=== PATIENT | female | born 1935 | race Caucasian/White ===

== ENCOUNTER 2016-12-14 16:57 | Inpatient (IN) | payer OTHER, MEDICARE ==
[~2016-12-14] VITALS: Ht 152.4 cm; Wt 42.4 kg
[2016-12-14] VITALS: BP 184/85
[2016-12-14] MEDS ORDERED: ONDANSETRON INJ 2 MG/ML 2 ML VIAL IV PRN (18:30)
[2016-12-14] MEDS ORDERED: ALUMINUM/MAGNESIUM/SIMETH (MAALOX MAX) 30 ML UDC PO PRN (18:30)
[2016-12-14] MEDS ORDERED: ALBUT/IPRATROP 3MG/0.5MG NEB 3 ML VIAL INH PRN (18:30)
[2016-12-14] MEDS ORDERED: POLYETHYLENE (MIRALAX) 17 GM PACK PO PRN (18:30)
[2016-12-14] MEDS ORDERED: MAGNESIUM HYDROXIDE SUSP 30 ML UDC PO PRN (18:30)
[2016-12-14] MEDS ORDERED: NITROGLYCERIN 0.4 MG SL PER TAB CHARGE SL PRN (18:30)
[2016-12-14] MEDS ORDERED: ACETAMINOPHEN 325 MG TAB PO PRN (18:30)
[2016-12-14] MEDS ORDERED: ASPI81CH2 PO (18:31)
[2016-12-14] MEDS ORDERED: DXY100 PO (18:31)
[2016-12-14] MEDS ORDERED: LSN5 PO (18:31)
[2016-12-14] MEDS ORDERED: LEVO50TA6 PO (18:31)
[2016-12-14] MEDS ORDERED: METO50TA17 PO (18:31)
[2016-12-14 18:44] VITALS: BP 120/70; PULSE 59; TEMP 36.4; O2SAT 97; Ht 152.4 cm; Wt 42.4 kg
--- NOTE | 2016-12-14 18:54 | History and Physical ---
History & Physical Date & Time of Service: Dec 14, 2016 at 18:34 Chief Complaint: Chf, Copd, Bilateral Pleural Effusion Primary Care Physician: Miguel Gamble M.D. History of Present Illness Source: patient, clinic records, hospital records Patient is a pleasant 81 y/o female, with PMHx of COPD, cor pulmonale, pulmonary fibrosis, chronic diastolic CHF, CAD s/p stent placement, HTN, hypothyroidism, and h/o bullous pemphigoid, who was a direct admission per Dr. Chris due to progressive dyspnea/hypoxia. Patient has been getting progressively short of breath over the past month. At the beginning of November, she was placed on chronic 3L O2 supplement. Due to progressive SOB, a CT scan was completed on 11/30, which reported bilateral pleural effusion. Due to this and progressive SOB, with no improvement with home O2, Dr. Chris would like patient to be admitted and consult Dr. Wells for possible thoracentesis. Additionally, per Dr. Chris reports, he is questioning whether patient is experiencing adrenal insufficiency. Patient was on Prednisone for h/o bullous pemphigoid- discontinued roughly 6 months ago per patient. +fatigue/weakness. + SOB at rest and with exertion. Patient denies any fever, chills, sweats, lightheadedness, dizziness, vision changes, CP, palpitations, edema, wheezing, cough, abdominal pain, nausea, vomiting, diarrhea, urinary symptoms, melena, numbness/tingling, muscle/joint pain, anxiety/depression, active bleeding, or new skin discoloration/changes. Past Medical/Surgical History Past Medical History COPD cor pulmonale pulmonary fibrosis chronic diastolic CHF CAD HTN hypothyroidism h/o bullous pemphigoid Surgical History: Appendectomy tubal ligation cataract surgery bronchoscopy stent placement Family History Father- Hodgkin Mother- emphysema Social History Smoking Status: Former Smoker Alcohol Use: none Marital Status: Housing status: lives with significant other Allergies Coded Allergies: Adhesives (Unverified Allergy, Unknown, ., 12/14/16) Albuterol (Unverified Allergy, Unknown, Listed as "Bad reaction", 12/14/16) Bupropion (Unverified Allergy, Unknown, Listed as "Bad reaction", 12/14/16) Ciprofloxacin (Unverified Allergy, Unknown, Listed as "Bad reaction", 12/14) Erythromycin (Unverified Allergy, Unknown, Listed as "Bad reaction", ) Ipratropium (Unverified Allergy, Unknown, Listed as "Bad reaction", ) Dicloxacillin (Unverified Adverse Reaction, Intermediate, slows metabolism , NEVER GIVE, 12/14/16) Fluticasone (Unverified Adverse Reaction, Unknown, Listed as "Bad reaction ", 12/14/16) Salmeterol (Unverified Adverse Reaction, Unknown, Listed as "Bad reaction ", 12/14/16) Tolterodine (Unverified Adverse Reaction, Unknown, dry mouth, 12/14/16) Home Medications Scheduled Aspirin (Aspirin), 1 TAB PO DAILY Doxycycline Hyclate (Doxycycline Hyclate), 100 MG PO DAILY Levothyroxine Sodium (Levothyroxine Sodium), 1 TAB PO DAILY Lisinopril (Lisinopril), 5 MG PO DAILY Metoprolol Tartrate (Metoprolol Tartrate), 50 MG PO BID Physical Exam General Appearance: no apparent distress, + thin (frail appearing ), + pertinent finding (4L NC O2- able to speak full sentences w/ no SOB) Head: normocephalic, atraumatic Eyes: normal inspection, PERRL ENT: hearing grossly normal Neck: supple Respiratory/Chest: lungs clear, no respiratory distress, no accessory muscle use, + decreased breath sounds (throughout all lung hines, >at bilateral lung bases ) Cardiovascular: regular rate, rhythm, no JVD Abdomen/GI: normal bowel sounds, non tender, soft Back: normal inspection Extremities/Musculoskelatal: no calf tenderness, no pedal edema Neurologic/Psych: alert, normal mood/affect, oriented x 3 Skin: normal color, no rash, + pertinent finding (extremities cool to touch ) Impression Assessment and Plan Patient is a pleasant 81 y/o female, with PMHx of COPD, cor pulmonale, pulmonary fibrosis, chronic diastolic CHF, CAD s/p stent placement, HTN, hypothyroidism, and h/o bullous pemphigoid, who was a direct admission per Dr. Chris due to progressive dyspnea/hypoxia. Dyspnea/hypoxia ?secondary to bilateral pleural effusion, h/o COPD, cor pulmonale, pulmonary fibrosis- follows w/ Dr. Chris: - Admit to tele for cardiac monitoring - O2 protocol, wean as tolerated- wears 3-4L O2 chronically - Obtain CBC and PRP - CXR pending - DuoNeb PRN SOB/wheezing - Continue Spiriva - Consult pulmonary, appreciate recommendations Progressive fatigue/weakness ?secondary to adrenal insufficiency: - No wheezing on exam, Cortosyn study reviewed- do not think stress dosing steroids is necessary at this time - PT/OT CAD s/p stent placement, chronic diastolic CHF, HTN: Continue ASA 81 mg daily, Lisinopril 5 mg daily, Metoprolol 50 mg BID Hypothyroidism: Continue Synthroid 50 mcg daily h/o bullous pemphigoid: Continue Doxycycline 100 mg daily DVT prophylaxis: TEDs/SCDs; will hold on chemical anticoagulation pending pulmonary consultation and ?thoracentesis Code Status: LEVEL V, DNR Dispo: From home, lives with - social media strategist consulted i personally examined pt and verified all rowland points w Lara Santana PAC has long and circuitous HPI centering on many tests that were done and abx for possible UTI (although only symptom was pressure) but on directed questioning her cardinal sx complex is fatigue/weakness and SMITH. had LE venous dopplers at [facility] a few weeks ago negative had 6 min walk test, CT chest, PFTs done not long ago doesn't recall echo being done, thinks last TSH was about 2 years ago. notes that she was on prednisone for bullous disease until not that long ago - not exact on when that was stopped and when her sx started but seems loosely in line. cosyntropin stim went 16-->20-->26 @ 0,30,60mins -- records in allscripts lungs diminished bibasilar but otherwise quiet but clear CXR w effusions but compared to read of CT from [facility] seems less than before , doubt is the main contributor fatigue/weakness/SMITH -main ddx appearing to be pulmonary vs cardiac vs relative adrenal vs thyroid; far less likely malignancy (clear CT chest, no mention of liver mets on CT chest , but also never had colo) ---get results of studies already done by dr chris, input from pulmonary in regards to possibly how much relates to chronic lung disease/management with inhalers, O2, etc ---echo ---TSH ---empiric trial of hydrocortisone Level of Care Telemetry Resuscitation Status FULL RESUSCITATION VTE Prophylaxis VTE Risk Assessment Done? Y/N: Yes Risk Level: Moderate Given or contraindicated: T.E.D. Stockings, SCD's
[2016-12-14 19:41] VITALS: BP 130/85; PULSE 66; TEMP 36.5; O2SAT 94
--- NOTE | 2016-12-14 20:30 | DIAGNOSTIC IMAGING REPORT ---
CHEST 2 VIEWS ROUTINE CLINICAL HISTORY: Dyspnea. COMPARISON STUDY: No previous studies for comparison. FINDINGS: A vascular stent projecting along the superolateral aspect of the aortic knob is noted. There is no pneumothorax. Small bilateral pleural effusions are present. There is no radiographic evidence of pulmonary edema. Bibasilar opacities favor atelectasis. There is suspected mild cardiomegaly. A few demonstrates an old thoracic spine compression fracture. IMPRESSION: 1. Small bilateral pleural effusions with associated bibasilar opacities which favor atelectasis. 2. No radiographic evidence of pulmonary edema. Electronically signed by: Andrea Singh M.D. 12/14/2016 8:29 PM Dictated Date/Time: 12/14/2016 8:26 PM
[2016-12-14 21:29] LABS: BASO % 0.9 %; BASO ABS # 0.08 K/uL (0-0.2); COMPLETE YES; EOS % 1.8 %; HEMATOCRIT 45.5 % (37-47); IG% 0.1 %; MEAN CELL VOLUME 87.8 fL (80-100); MEAN CORPUSCULAR HEMOGLOBIN 27.2 pg (25-34); MEAN PLATELET VOLUME 10.8 fL (7.4-10.4); MONO % 9.3 %; NEUT % 53.9 %; PLATELET COUNT 230 K/uL (130-400); RED BLOOD COUNT 5.18 M/uL (4.2-5.4); WHITE BLOOD COUNT 9.11 K/uL (4.8-10.8)
[2016-12-14] MEDS: METOPROLOL TARTRATE 50 MG TAB PO SCH (21:31)
[2016-12-14 21:48] LABS: BUN/CREATININE RATIO 15.1 (10-20); CREATININE 0.98 mg/dl (0.60-1.20); POTASSIUM 4.4 mmol/L (3.5-5.1)
[2016-12-14 22:03] LABS: URINE APPEARANCE CLOUDY (CLEAR); URINE BILIRUBIN NEG (NEG); URINE COLOR YELLOW; URINE NITRITE NEG (NEG); URINE SPECIFIC GRAVITY 1.013 (1.000-1.030); UROBILINOGEN NEG (NEG); ZZUR CULT IF INDIC CLEAN CATCH NO
[2016-12-14 22:04] LABS: MANUAL MICROSCOPIC REQUIRED? NO; REVIEW REQ? NO
[2016-12-14 23:30] VITALS: BP 174/86; PULSE 60; TEMP 36.7; O2SAT 93
[2016-12-15] VITALS (7 sets, daily range): BP systolic 127–168; BP diastolic 52–77; PULSE 56–64; TEMP 36.3–36.9; O2SAT 91–98
[2016-12-15] MEDS ORDERED: HydrALAZINE HCL 20 MG/ML VIAL IV. PRN (00:30)
[2016-12-15] MEDS: LEVOTHYROXINE 50 MCG TAB PO SCH (05:29)
[2016-12-15 05:36] LABS: HEMATOCRIT 40.1 % (37-47); MEAN CELL VOLUME 86.1 fL (80-100); MEAN CORPUSCULAR HEMOGLOBIN 28.8 pg (25-34); MEAN CORPUSCULAR HGB CONC 33.4 g/dl (32-36); MEAN PLATELET VOLUME 10.7 fL (7.4-10.4); PLATELET COUNT 198 K/uL (130-400); RED BLOOD COUNT 4.66 M/uL (4.2-5.4)
[2016-12-15 06:18] LABS: BUN/CREATININE RATIO 21.3 (10-20); CALCIUM 8.5 mg/dl (8.5-10.1); CREATININE 0.86 mg/dl (0.60-1.20); POTASSIUM 4.4 mmol/L (3.5-5.1)
--- NOTE | 2016-12-15 07:41 | Clinical Documentation Query ---
CLINICAL DOCUMENTATION QUERY 81 y/o female that was a direct admission per Dr. Gautam due to progressive dyspnea/hypoxia. In your clinical opinion is this patient being managed for: ( x ) Acute on chronic respiratory failure in setting of COPD, cor pulmonale, & pulmonary fibrosis treated with continued O2 therapy. ( ) Not Agree ( ) Other explanation of clinical findings (Please Explain) ( ) Unable to determine (Please Define) ( ) Need to Discuss The medical record reflects the following clinical findings, treatment, and risk factors. Clinical Indicators: home O2 therapy Treatment: O2 therapy Risk Factors: Age, COPD, cor pulmonale, pulmonary fibrosis, chronic diastolic CHF Please clarify and document your clinical opinion in the progress notes and discharge summary. Terms such as "probable", "suspected", "likely", "questionable", "possible", or "still to be ruled out" are acceptable. IF IN AGREEMENT, YOU MUST DOCUMENT ABOVE DIAGNOSTIC STATEMENT IN DAILY PROGRESS NOTES AND DISCHARGE SUMMARY. This document is not part of the patient's record. Thank You, Felix Cruz, RN [phone]
[2016-12-15] MEDS: ASPIRIN 81 MG ECTAB PO SCH (08:55)
[2016-12-15] MEDS: HYDROCORTISONE 10 MG TAB PO SCH (08:55)
[2016-12-15] MEDS: LISINOPRIL 5 MG TAB PO SCH (08:55)
[2016-12-15] MEDS: DOXYCYCLINE HYCLATE 100 MG CAP PO SCH (08:55)
[2016-12-15] MEDS: METOPROLOL TARTRATE 50 MG TAB PO SCH ×2 (08:56→21:00)
[2016-12-15] MEDS: TIOTROPIUM BROMIDE 5 PUFF/90 MCG INH INH SCH (08:56)
--- NOTE | 2016-12-15 11:17 | Hospitalist Progress Note ---
Hospitalist Progress Note Date of Service Dec 15, 2016. (Rhonda Hill ., PA-C) Subjective Pt evaluation today including: conversation w/ patient, physical exam, chart review, lab review, review of inpatient medication list Patient reports feeling weak and fatigued. She states that lately she has felt more short of breath, and her supplemental oxygen was just increased from 3L to 4L by Dr. García yesterday prior to arrival. She notes feeling more fatigued doing her usual daily activities and complains of dyspnea on exertion. She states that she felt nauseous last night and did vomit. She states that the vomit looked red and is unsure if that was blood. She denies any nausea or vomiting currently, however, and was able to eat breakfast without issue. The patient also complains of a cough that is mostly non-productive. The patient denies fevers, chills, sweats, chest pain, palpitations, claudication, wheezing , nausea, vomiting, abdominal pain, dysuria, hematuria, urinary retention, paralysis, motor weakness, numbness and tingling. Additional Comments: See HPI for pertinent positives and negatives. All other systems reviewed and negative. (Rhonda Hill ., PA-C) Objective Vital Signs Date Time Temp Pulse Resp B/P (MAP) Pulse Ox O2 Delivery O2 Flow Rate FiO2 12/15/16 08:18 36.9 56 18 136/61 (86) 98 12/15/16 04:30 Nasal Cannula 4.0 12/15/16 04:00 36.6 61 20 127/52 (77) 94 Nasal Cannula 4.0 12/15/16 01:32 136/62 (86) 12/15/16 00:00 Nasal Cannula 4.0 12/14/16 23:30 36.7 60 20 174/86 (115) 93 Nasal Cannula 4.0 12/14/16 20:00 Nasal Cannula 4.0 12/14/16 19:41 36.5 66 22 130/85 (100) 94 Nasal Cannula 4.0 12/14/16 18:44 36.4 59 18 120/70 97 Nasal Cannula 4.0 (Rhonda Hill ., PA-C) Physical Exam Notes: General appearance: +Thin. Appears chronically ill. Well-developed, well- nourished, no apparent distress Head: Normocephalic, atraumatic Eyes: Normal inspection, PERRL, EOMI ENT: Normal ENT inspection, hearing grossly normal, pharynx normal Neck: Supple, no JVD, trachea midline Respiratory/Chest: +Diminished breath sounds in bases. Lungs clear to auscultation, normal breath sounds, no respiratory distress Cardiovascular: Regular rate & rhythm, no gallop, no murmur Abdomen/GI: Normal bowel sounds, non-tender, soft Extremities/Musculoskeletal: Normal inspection, no calf tenderness, no pedal edema Neurological/Psych: Alert, normal mood/affect, oriented x 3 Skin: Normal color, warm/dry, no rash (Rhonda Hill, YAYA) Laboratory Results Last 24 Hours Test 12/14/16 21:17 12/14/16 21:43 12/15/16 05:24 12/15/16 10:17 White Blood Count 9.11 K/uL 10.70 K/uL Red Blood Count 5.18 M/uL 4.66 M/uL Hemoglobin 14.1 g/dL 13.4 g/dL Hematocrit 45.5 % 40.1 % Mean Corpuscular Volume 87.8 fL 86.1 fL Mean Corpuscular Hemoglobin 27.2 pg 28.8 pg Mean Corpuscular Hemoglobin Concent 31.0 g/dl 33.4 g/dl Platelet Count 230 K/uL 198 K/uL Mean Platelet Volume 10.8 fL 10.7 fL Neutrophils (%) (Auto) 53.9 % Lymphocytes (%) (Auto) 34.0 % Monocytes (%) (Auto) 9.3 % Eosinophils (%) (Auto) 1.8 % Basophils (%) (Auto) 0.9 % Neutrophils # (Auto) 4.91 K/uL Lymphocytes # (Auto) 3.10 K/uL Monocytes # (Auto) 0.85 K/uL Eosinophils # (Auto) 0.16 K/uL Basophils # (Auto) 0.08 K/uL RDW Standard Deviation 46.2 fL 45.2 fL RDW Coefficient of Variation 14.4 % 14.5 % Immature Granulocyte % (Auto) 0.1 % Immature Granulocyte # (Auto) 0.01 K/uL Sodium Level 141 mmol/L 139 mmol/L Potassium Level 4.4 mmol/L 4.4 mmol/L Chloride Level 103 mmol/L 103 mmol/L Carbon Dioxide Level 35 mmol/L 33 mmol/L Anion Gap 3.0 mmol/L 3.0 mmol/L Blood Urea Nitrogen 15 mg/dl 18 mg/dl Creatinine 0.98 mg/dl 0.86 mg/dl Est Creatinine Clear Calc Drug Dose 30.5 ml/min 34.9 ml/min Estimated GFR () 63.1 73.9 Estimated GFR (Non- 54.5 63.8 BUN/Creatinine Ratio 15.1 21.3 Random Glucose 102 mg/dl 79 mg/dl Calcium Level 9.0 mg/dl 8.5 mg/dl Thyroid Stimulating Hormone (TSH) 3.380 uIu/ml Urine Color YELLOW Urine Appearance CLOUDY Urine pH 8.0 Urine Specific [place] 1.013 Urine Protein NEG Urine Glucose (UA) NEG Urine Ketones NEG Urine Occult Blood NEG Urine Nitrite NEG Urine Bilirubin NEG Urine Urobilinogen NEG Urine Leukocyte Esterase NEG Urine WBC (Auto) 1-5 /hpf Urine RBC (Auto) 0-4 /hpf Urine Hyaline Casts (Auto) 0 /lpf Urine Epithelial Cells (Auto) 5-10 /lpf Urine Bacteria (Auto) NEG Transferrin % Saturation % Test 12/15/16 10:31 12/15/16 10:32 Erythrocyte Sedimentation Rate 20 mm/hr (Rhonda Hill PA-C) Diagnostic Results Reviewed the following studies and agree with interpretation as follows: Patient Name: MELBA ROMERO Unit Number: [id number] Dictated: 12/14/162025 Transcribed: 12/14/162025 SIMÓN Printed Date/Time: [~ rep prt dt]/[~ rep prt tm] [~ rep ct labl] - [~ rep ct ivnm] [facility] [place] [address] Dictated: 12/14/162025 Transcribed: 12/14/162025 Printed Date/Time: [~ rep prt dt]/[~ rep prt tm] [~ rep ct labl] - [~ rep ct ivnm] Patient: MELBA ROMERO Address1: [address] Rec: [id number] Address2: Acct ID: [id number] [facility] Zip: [place] [address] Date: 1935 Sex: F Room/Bed: [facility] Ref Phy: Miguel Gamble M.D. SC: C[facility] Att Phy: Pankaj Hughes D.O. Report #: [id number] Luz Phy: Miguel Gamble M.D. Test: CXR Admit Phy: Pankaj Hughes D.O. Securities Analyst: SERENE Interpreting Phy: Andrea Singh MD Diagnosis: CHF, COPD, BILATERAL PLEURAL EFFUSION Ordering Phy: Anabel Santana PA-C Service Date: 12/14/16 Admit Date: 12/14/16 MNE: [id number] CONF: DICTATED BY: Andrea Singh MD]] CC: Miguel Gamble M.D., Taylor ., Pankaj Rae D.O. Endcc: [~ rep ct add3]] CHEST 2 VIEWS ROUTINE CLINICAL HISTORY: Dyspnea. COMPARISON STUDY: No previous studies for comparison. FINDINGS: A vascular stent projecting along the superolateral aspect of the aortic knob is noted. There is no pneumothorax. Small bilateral pleural effusions are present. There is no radiographic evidence of pulmonary edema. Bibasilar opacities favor atelectasis. There is suspected mild cardiomegaly. A few demonstrates an old thoracic spine compression fracture. IMPRESSION: 1. Small bilateral pleural effusions with associated bibasilar opacities which favor atelectasis. 2. No radiographic evidence of pulmonary edema. Electronically signed by: Andrea Singh M.D. 12/14/2016 8:29 PM Dictated Date/Time: 12/14/2016 8:26 PM The status of this report is Signed. Draft = Not yet reviewed or approved by Radiologist. Signed = Reviewed and approved by Radiologist. <AttendingPhy>Pankaj Hughes D.O.</AttendingPhy> <FamilyPhy>Miguel Gamble M.D.</ FamilyPhy> <PrimaryPhy>Miguel Gamble M.D.</PrimaryPhy> <UnitNumber>[id number]</ UnitNumber> <VisitNumber>[id number]</VisitNumber> <PatientName>MELBA ROMERO Piero</PatientName> <DateOfBirth>1935</DateOfBirth> <Location>[facility]</ Location> <ServiceDate></ServiceDate> <MNE>ESINDI</MNE> <OrderingPhy>Anabel Santana PA-C</OrderingPhy> <OrderingPhyMNE>f rep ord dr austin</OrderingPhyMNE> < DictatingPhyMNE>f rep dict dr austin</DictatingPhyMNE> <CCListMNE>f rep ct mne</ CCListMNE> <AdmittingPhyMNE>f pt admit dr austin</AdmittingPhyMNE> <AttendingPhyMNE >f pt attend dr austin</AttendingPhyMNE> <ConsultingPhyMNE>f pt consult dr austin</ConsultingPhyMNE> <FamilyPhyMNE>f pt fam dr austin</FamilyPhyMNE> <OtherPhyMNE>f pt other dr austin</OtherPhyMNE> < PrimaryPhyMNE>f pt prim care dr austin</PrimaryPhyMNE> <ReferringPhyMNE>f pt referring dr austin</ReferringPhyMNE> (Rhonda Hill ., YAYA) Assessment and Plan 81 y/o female with a history of COPD, cor pulmonale, pulmonary fibrosis, chronic diastolic CHF, CAD s/p stent placement, HTN, hypothyroidism, and h/o bullous pemphigoid, who presents for a direct admission from Dr. Gautam's office with progressive dyspnea and hypoxia. Chronic respiratory failure in setting of b/l pleural effusions, COPD, cor pulmonale, & pulmonary fibrosis- follows w/ Dr. Gautam--stable. Denies SOB currently - Admit to tele for cardiac monitoring. No acute events overnight. Pt remained in sinus rhythm/sinus bradycardia with HR in 50s-60s - O2 protocol, wean as tolerated- wears 3-4L O2 chronically - CXR shows small bilateral pleural effusions with associated bibasilar opacities which favor atelectasis - DuoNeb PRN SOB/wheezing - Continue Spiriva - Consult pulmonary, appreciate recommendations Progressive fatigue/weakness ?secondary to adrenal insufficiency - Trial of Cortef, 20 mg PO qam and 10 mg PO qpm - Magnesium, ESR, CRP, B12 and folate WNL - Iron studies grossly unremarkable - Vitamin D low at 7.9 - Start ergocalciferol 50,000 IU PO 2x/week - TSH WNL - PT/OT CAD s/p stent placement, chronic diastolic CHF, HTN--stable - Continue ASA, lisinopril 5 mg PO qd, metoprolol tartrate 50 mg PO BID Hypothyroidism -Continue Synthroid 50 mcg PO qd H/o bullous pemphigoid -Continue Doxycycline 100 mg PO qd DVT prophylaxis -Heparin 5000 units SC q12h -TAMIE leigh and SCDs Code Status -Level V, DO NOT RESUSCITATE (Rhonda Hill ., PA-C) Attending Attestation: Pt seen/examined, chart reviewed, care plan d/w PA Rhonda Hill. I agree w/ the rowland components of her documentation. Pt's main complaint is chronic fatigue for several months. This has been associated with at least 10 pounds of weight loss. Admits to depression; in fact got slightly tearful during our discussion. Denies any pulmonary complaints today. VSS, o2 sats on NC O2 acceptable gen - thin, cacechtic neck - no JVD mouth - no lesions heart - RRR lungs - decreased BS both bases, o/w no wheeze or rales abd - soft, no masses ext - no edema A/P: 1. chronic respiratory failure 2nd to severe COPD & pulmonary HTN 2. failure to thrive with fatigue & weight loss, etiology uncertain 3. concern of adrenal insufficiency - ruled out with negative cosyntropin stim test at [facility] 4. b/l pleural effusions - too small to safely tap and even if thoracentesis could be done I doubt this would make her feel any better; b/l effusions would suggest transudative etiology 5. vitamin D def - severe 6. probable underlying depression lengthy discussion held with pt's by phone this evening discussed cxr findings, labs, plan of care he was quite upset about his 's overall health over the last few months told him I would contact his PCP tomorrow and that I anticipated d/c tomorrow as well (PT cleared for home) Lei Clayton MD (Lei Clayton MD)
[2016-12-15 11:27] LABS: C-REACTIVE PROTEIN < 0.29 mg/dl (0-0.29); FERRITIN 51.5 ng/ml (8.0-388.0); MAGNESIUM 2.1 mg/dl (1.8-2.4); TOTAL IRON BINDING CAPACITY 241 mcg/dl (250-450)
--- NOTE | 2016-12-15 12:51 | Pulmonary Consultation ---
History General Date of Service: Dec 15, 2016. Stated Complaint: Chf, Copd, Bilateral Pleural Effusion HPI The patient is a 81 year old female who presents to [facility] with complaints of Chf, Copd, Bilateral Pleural Effusion. The patient's primary care provider is Miguel Gambel M.D.. 81-year-old female being admitted to the [facility] through the pulmonary clinic after being evaluated by Dr. Gautam and noted increased hypoxemia now requiring 2 L nasal cannula at rest. Patient does have a long history of COPD last pulmonary function test performed 09/29/2011 notable for moderate least severe obstructive ventilatory disease with a bout of intraoperative DLCO at 44%. The patient has noted progressive dyspnea on exertion and fatigue over the last year. She also notes an unintentional weight loss. At times well. Due to this the patient was recently seen by Dr. Jose Juan Gautam for workup and with 6 minute walk study on 11/25/[address] of the thorax on 11/30/2016 showing bilateral pleural effusions and diffuse emphysematous changes and signs a loculated pleural effusion bilaterally. The patient currently denies: Fever, chills, pleurisy, classic cardiac chest pain, night sweats, productive cough or hemoptysis. The patient does have a chronic history of steroid use secondary to bullous pemphigoid and was she was recently weaned. Serum Studies Outpatient cosyntropin stim test: Initial value 16.5 with response after cosyntropin stimulation 226.9 within a 60 minute window AB.37/48/53 ( EKG: Normal sinus rhythm, rate 60, no signs of acute ischemia, signs of LVH WBC: 11K CO2: 35 BUN: 18 Cr: 0.86 Vit D: 7.9(L) CRP: <0.29 CXR: Bilateral costophrenic blunting, mild bibasilar opacifications Medications: Hydrocortisone 20 QD ASA 81mg QD Lisinopril 5 mg daily Spiriva one puff daily Lopressor 50 mg twice a day 6 minute walk study 11/25/2016 O2 sat at baseline 86% on room air, heart rate 68 On 2 L increased at baseline to 93% rate 68 Ambulation pulse ox 90% on 2 L heart rate 70 Primary function test 09/29/2011 Spirometry: Moderately severe obstructive ventilatory disease Bronchodilator: No significant response Lung volumes: Signs of hyperinflation with an elevated RV/TLC at 51 Diffusion: 44% corrected to 62% off alveolar volume Interpretation: Emphysema Radiology CTA thorax 11/30/2016: Bilateral pleural effusions right greater than left Signs of chronic pleural scarring on the left with loculated effusion possible right Bronchiectatic changes mild atelectasis in the inferior lingular subsegment Bronchiectatic changes in the right middle lobe Left lower lobe bronchiectasis with signs of rounded atelectasis Bronchus intermedius signs of mucous plugs on the medial wall Historian: patient, caregiver, EMS Review of Systems Constitutional: reports: malaise Eyes: reports: no symptoms ENT: reports: no symptoms Cardiovascular: reports: as stated in HPI Gastrointestinal: reports: no symptoms Musculoskeletal: reports: no symptoms Integumentary: reports: no symptoms Neurologic: reports: no symptoms Psychiatric: reports: no symptoms Endocrine: no symptoms Hematologic / Lymphatic: no symptoms Allergic / Immunologic: no symptoms Past Medical History Past Medical History: 1. Bullous pemphigoid 2. Chronic nonspecific lung disease 3. Chronic obstructive pulmonary disease 4. Cor pulmonale 5. Coronary artery disease 6. Occlusion of carotid artery ( 7. Osteoporosis 8. Pulmonary fibrosis 9. Urinary tract infection 10. Compression fractures of thoracic vertebra Past Surgical History: #1 appendectomy #2 bronchoscopy next #3 cataract surgery next #4 subclavian/innominate vessel stenting #5 tubal ligation Family History #1 emphysema next line #2 Hodgkin's disease Social History Alcohol, denies history of use or abuse Tobacco: History former smoker quit 13 years prior smoker multiple decades Hx Tobacco Use In Past Year?: No Smoking Status: Former Smoker Marital status: Housing status: lives with significant other Allergies Coded Allergies: Adhesives (Unverified Allergy, Unknown, ., 12/14/16) Albuterol (Unverified Allergy, Unknown, Listed as "Bad reaction", 12/14/16) Bupropion (Unverified Allergy, Unknown, Listed as "Bad reaction", 12/14/16) Ciprofloxacin (Unverified Allergy, Unknown, Listed as "Bad reaction", 12/14) Erythromycin (Unverified Allergy, Unknown, Listed as "Bad reaction", ) Ipratropium (Unverified Allergy, Unknown, Listed as "Bad reaction", ) Dicloxacillin (Unverified Adverse Reaction, Intermediate, slows metabolism , NEVER GIVE, 12/14/16) Fluticasone (Unverified Adverse Reaction, Unknown, Listed as "Bad reaction ", 12/14/16) Salmeterol (Unverified Adverse Reaction, Unknown, Listed as "Bad reaction ", 12/14/16) Tolterodine (Unverified Adverse Reaction, Unknown, dry mouth, 12/14/16) Current Medications Reported Home Medications Medications Dose Route/Sig Max Daily Dose Days Date Category Metoprolol Tartrate 50 Mg Tab 50 Mg PO BID 30 12/14/16 Rx Lisinopril 5 Mg Tab 5 Mg PO DAILY 12/14/16 Rx Levothyroxine Sodium 50 Mcg Tab 1 Tab PO DAILY 30 12/14/16 Rx Doxycycline Hyclate 100 Mg Cap 100 Mg PO DAILY 30 12/14/16 Rx Aspirin 81 Mg Chw 1 Tab PO DAILY 30 12/14/16 Rx Physical Physical Exam Vital Signs: Date Time Temp Pulse Resp B/P (MAP) Pulse Ox O2 Delivery O2 Flow Rate FiO2 12/15/16 12:00 Nasal Cannula 4.0 12/15/16 08:18 36.9 56 18 136/61 (86) 98 12/15/16 08:00 Nasal Cannula 4.0 12/15/16 04:30 Nasal Cannula 4.0 12/15/16 04:00 36.6 61 20 127/52 (77) 94 Nasal Cannula 4.0 12/15/16 01:32 136/62 (86) 12/15/16 00:00 Nasal Cannula 4.0 12/14/16 23:30 36.7 60 20 174/86 (115) 93 Nasal Cannula 4.0 12/14/16 20:00 Nasal Cannula 4.0 12/14/16 19:41 36.5 66 22 130/85 (100) 94 Nasal Cannula 4.0 12/14/16 18:44 36.4 59 18 120/70 97 Nasal Cannula 4.0 General Appearance: WELL-APPEARING, NO APPARENT DISTRESS Head: NORMOCEPHALIC, ATRAUMATIC Eyes: PERRLA, NO DISCHARGE, EOMI, SCLERAE NORMAL ENT: NORMAL EAR EXAM, NORMAL NASAL EXAM, NORMAL MOUTH EXAM, NORMAL THROAT EXAM Neck: NORMAL RANGE OF MOTION, NO TENDERNESS, TRACHEA MIDLINE, NO STRIDOR Respiratory: other (decreased breath sounds in the bases mild expiratory wheezing globally/thoracic ultrasound shows bilateral pleural effusions with signs of trapped lung as well as adhered lung to the parietal pleura) Cardiovasular: REGULAR RATE/RHYTHM, NO M/G/R, NO MURMUR Abdomen: NON TENDER, NORMAL BOWEL SOUNDS, NO REBOUND, NO MASSES, NO GUARDING, NO ORGANOMEGALY Genitourinary - Female: EXTERNAL GENITALIA NORMAL Back: NORMAL INSPECTION, NO MIDLINE TENDERNESS, NO CVA TENDERNESS, NO PARAVERTEBRAL TTP Upper Extremities: NO EDEMA, NO DEFORMITY, NORMAL ROM Lower Extremities: NO EDEMA, NO DEFORMITY, NORMAL ROM Pulses: carotid (R) (2+), carotid (L) (2+), posterior tibial (R), posterior tibial (L) (2+) Neuro: ALERT, ORIENTED x 3, NORMAL MOTOR EXAM, NORMAL SENSATION, NORMAL CEREBELLAR EXAM Reflexes: biceps (R) (2+), bicpes (L) (2+), achilles (R) (2+), achilles (L) (2+ ) Babinski Testing: right (downgoing), left (downgoing) Psychiatric: NORMAL AFFECT Diagnostics Labs Results Past 24 Hours Test 12/14/16 21:17 12/14/16 21:43 12/15/16 05:24 12/15/16 10:31 Range/Units White Blood Count 9.11 10.70 4.8-10.8 K/uL Red Blood Count 5.18 4.66 4.2-5.4 M/uL Hemoglobin 14.1 13.4 12.0-16.0 g/dL Hematocrit 45.5 40.1 37-47 % Mean Corpuscular Volume 87.8 86.1 80-100 fL Mean Corpuscular Hemoglobin 27.2 28.8 25-34 pg Mean Corpuscular Hemoglobin Concent 31.0 33.4 32-36 g/dl Platelet Count 230 198 130-400 K/uL Mean Platelet Volume 10.8 10.7 7.4-10.4 fL Neutrophils (%) (Auto) 53.9 % Lymphocytes (%) (Auto) 34.0 % Monocytes (%) (Auto) 9.3 % Eosinophils (%) (Auto) 1.8 % Basophils (%) (Auto) 0.9 % Neutrophils # (Auto) 4.91 1.4-6.5 K/uL Lymphocytes # (Auto) 3.10 1.2-3.4 K/uL Monocytes # (Auto) 0.85 0.11-0.59 K/uL Eosinophils # (Auto) 0.16 0-0.5 K/uL Basophils # (Auto) 0.08 0-0.2 K/uL RDW Standard Deviation 46.2 45.2 36.4-46.3 fL RDW Coefficient of Variation 14.4 14.5 11.5-14.5 % Immature Granulocyte % (Auto) 0.1 % Immature Granulocyte # (Auto) 0.01 0.00-0.02 K/uL Sodium Level 141 139 136-145 mmol/L Potassium Level 4.4 4.4 3.5-5.1 mmol/L Chloride Level 103 103 98-107 mmol/L Carbon Dioxide Level 35 33 21-32 mmol/L Anion Gap 3.0 3.0 3-11 mmol/L Blood Urea Nitrogen 15 18 7-18 mg/dl Creatinine 0.98 0.86 0.60-1.20 mg/dl Est Creatinine Clear Calc Drug Dose 30.5 34.9 ml/min Estimated GFR () 63.1 73.9 Estimated GFR (Non- 54.5 63.8 BUN/Creatinine Ratio 15.1 21.3 10-20 Random Glucose 102 79 70-99 mg/dl Calcium Level 9.0 8.5 8.5-10.1 mg/dl Thyroid Stimulating Hormone (TSH) 3.380 0.300-4.500 uIu/ml Urine Color YELLOW Urine Appearance CLOUDY CLEAR Urine pH 8.0 4.5-7.5 Urine Specific [place] 1.013 1.000-1.030 Urine Protein NEG NEG Urine Glucose (UA) NEG NEG Urine Ketones NEG NEG Urine Occult Blood NEG NEG Urine Nitrite NEG NEG Urine Bilirubin NEG NEG Urine Urobilinogen NEG NEG Urine Leukocyte Esterase NEG NEG Urine WBC (Auto) 1-5 0-5 /hpf Urine RBC (Auto) 0-4 0-4 /hpf Urine Hyaline Casts (Auto) 0 0-5 /lpf Urine Epithelial Cells (Auto) 5-10 0-5 /lpf Urine Bacteria (Auto) NEG NEG Magnesium Level 2.1 1.8-2.4 mg/dl Iron Level 64 35-150 mcg/dl Total Iron Binding Capacity 241 250-450 mcg/dl Transferrin 177 200-360 mg/dl Transferrin % Saturation 26 15-50 % Ferritin 51.5 8.0-388.0 ng/ml Total Creatine Kinase 25 26-192 U/L C-Reactive Protein < 0.29 0-0.29 mg/dl Vitamin B12 Level 485 211-911 pg/mL 25-Hydroxy Vitamin D Total 7.9 30-100 ng/ml Folate > 24.00 >5.38 ng/mL Test 12/15/16 10:32 Range/Units Erythrocyte Sedimentation Rate 20 0-21 mm/hr Diagnostic Radiology Normal sinus rhythm, rate 60, no signs of acute ischemia, signs of LVH EKG CTA thorax 11/30/2016: Bilateral pleural effusions right greater than left Signs of chronic pleural scarring on the left with loculated effusion possible right Bronchiectatic changes mild atelectasis in the inferior lingular subsegment Bronchiectatic changes in the right middle lobe Left lower lobe bronchiectasis with signs of rounded atelectasis Bronchus intermedius signs of mucous plugs on the medial wall CXR: Bilateral costophrenic blunting, mild bibasilar opacifications Impression Assessment and Plan 81-year-old female admitted with increasing dyspnea and associated hypoxemia and failure to thrive #1 Hypoxia: Patient's hypoxemia most likely from progressive emphysema but also volume overload possible diastolic versus systolic heart failure and malnutrition. At this time suggest continue hydrocortisone at current doses of present outpatient. Also suggest aggressive diuresis while monitoring renal function and will obtain total protein, albumin and prealbumin levels for overall nutritional status. #2 adrenal insufficiency: Patient did have a decreased response to the cosyntropin stim test and is currently being monitored/treated with hydrocortisone. #3 pleural effusion's: Patient did have small bilateral pleural effusions but also has notable lung adhered to the parietal pleura so no good entry point for thoracentesis is available. Lead risk to benefit ratio for this patient takes thoracentesis out of the equation.
[2016-12-15] MEDS ORDERED: ERGOCALCIFEROL 50,000 INTER.UNIT CAP PO SCH (13:00)
[2016-12-15] MEDS ORDERED: HYDROCORTISONE 10 MG TAB PO SCH (14:00)
[2016-12-15 15:39] LABS: PROTHROMBIN TIME (PATIENT) 10.6 SECONDS (9.0-12.0)
--- NOTE | 2016-12-15 15:57 | ECHOCARDIOGRAM REPORT ---
*NOTICE TO RECEIVING CONSTITUTION PARTY AGENCY This information is strictly Confidential and protected under [place] law. [place] law prohibits you from making any further disclosure of this information unless further disclosure is expressly permitted by the written consent of the person to whom it pertains or is authorized by law. A general authorization for the release of medical or other information is not sufficient for this purpose. Hospital accepts no responsibility if the information is made available to any other person, INCLUDING THE PATIENT. Interpretation Summary * Name: MELBA ROMERO Study Date: 12/15/2016 06:53 AM BP: 127/52 mmHg * Patient Location: .2E\S\E204\S\1 HR: 61 * : 1935 (M/d/yyyy) Gender: Female Height: 60 in * Age: 81 yrs Ethnicity: CA Weight: 93 lb * Ordering Physician: Pankaj Hughes * Referring Physician: Jose Juan Gautam * Performed By: Amber Dumont * * Reason For Study: FATIGUE, WEAKNESS * BSA: 1.3 m2 * -- Conclusions -- * Left ventricular systolic function is normal. * No regional wall motion abnormalities noted. * Ejection Fraction = 65-70%. * There is moderate concentric left ventricular hypertrophy. * Diastolic dysfunction, Grade II (pseudonormalization pattern). * There is mild to moderate tricuspid regurgitation. * Right ventricular systolic pressure is elevated at 40-50mmHg. Procedure Details * A complete two-dimensional transthoracic echocardiogram was performed (2D, M-mode, Doppler and color flow Doppler). Left Ventricle * The left ventricle is normal in size. * There is moderate concentric left ventricular hypertrophy. * Ejection Fraction = 65-70%. * Left ventricular systolic function is normal. * No regional wall motion abnormalities noted. Right Ventricle * The right ventricle is normal size. * There is mild right ventricular hypertrophy. * The right ventricular systolic function is reduced as assessed by tricuspid annular plane systolic excursion (TAPSE) (TAPSE <1.6 cm). Atria * The left atrial size is normal. * Right atrial size is normal. * No ASD detected; PFO is not assessed. Mitral Valve * The mitral valve is grossly normal. * Significant mitral regurgitation is absent. Tricuspid Valve * The tricuspid valve is not well visualized, but is grossly normal. * There is no tricuspid stenosis. * There is mild to moderate tricuspid regurgitation. * Right ventricular systolic pressure is elevated at 40-50mmHg. Aortic Valve * The aortic valve is normal in structure and function. * No hemodynamically significant valvular aortic stenosis. * Trace aortic regurgitation. Pulmonic Valve * The pulmonary valve is not well seen, but the Doppler examination is normal without significant regurgitation or stenosis. Great Vessels * The aortic root is normal size. * The pulmonary is not well visualized. Pericardium/Pleural * There is no pericardial effusion. Great Vessels * Normal inferior vena cava size and collapsability with sniff indicates a normal right atrial pressure of 3 mmHg Left Ventricular Diastolic Function * Diastolic dysfunction, Grade II (pseudonormalization pattern). MMode 2D Measurements and Calculations IVSd 1.4 cm IVSs 1.9 cm LVIDd 3.5 cm LVIDs 2.2 cm LVPWd 1.4 cm LVPWs 1.4 cm IVS/LVPW 0.97 FS 35.0 % EDV(Teich) 49.3 ml ESV(Teich) 17.1 ml EF(Teich) 65.4 % EDV(cubed) 41.2 ml ESV(cubed) 11.3 ml EF(cubed) 72.5 % % IVS thick 36.1 % % LVPW thick -3.51 % LV mass(C)d 172.8 grams LV mass(C)dI 128.2 grams/m\S\2 LV mass(C)s 131.8 grams LV mass(C)sI 97.8 grams/m\S\2 SV(Teich) 32.2 ml SI(Teich) 23.9 ml/m\S\2 SV(cubed) 29.9 ml SI(cubed) 22.2 ml/m\S\2 ACS 1.6 cm LA dimension 3.4 cm asc Aorta Diam 2.7 cm LVOT diam 1.7 cm LVOT area 2.2 cm\S\2 LVAd ap4 16.0 cm\S\2 LVLd ap4 5.7 cm EDV(MOD-sp4) 37.9 ml EDV(sp4-el) 38.2 ml LVAs ap4 7.8 cm\S\2 LVLs ap4 4.5 cm ESV(MOD-sp4) 12.0 ml ESV(sp4-el) 11.5 ml EF(MOD-sp4) 68.4 % EF(sp4-el) 70.0 % LVAd ap2 21.9 cm\S\2 LVLd ap2 6.1 cm EDV(MOD-sp2) 61.4 ml EDV(sp2-el) 66.5 ml LVAs ap2 10.6 cm\S\2 LVLs ap2 4.7 cm ESV(MOD-sp2) 20.0 ml ESV(sp2-el) 20.4 ml EF(MOD-sp2) 67.4 % EF(sp2-el) 69.3 % LVLd %diff 7.3 % EDV(MOD-bp) 50.0 ml LVLs %diff 4.8 % ESV(MOD-bp) 15.4 ml EF(MOD-bp) 69.2 % SV(MOD-sp4) 25.9 ml SI(MOD-sp4) 19.2 ml/m\S\2 SV(MOD-sp2) 41.4 ml SI(MOD-sp2) 30.7 ml/m\S\2 SV(MOD-bp) 34.6 ml SI(MOD-bp) 25.7 ml/m\S\2 SV(sp4-el) 26.7 ml SI(sp4-el) 19.8 ml/m\S\2 SV(sp2-el) 46.1 ml SI(sp2-el) 34.2 ml/m\S\2 Doppler Measurements and Calculations MV E max regna 83.3 cm/sec MV A max regan 65.1 cm/sec MV E/A 1.3 MV dec time 0.23 sec Ao V2 max 154.2 cm/sec Ao max PG 9.5 mmHg Ao max PG (full) 4.9 mmHg ALLYN(V,A) 1.6 cm\S\2 ALLYN(V,D) 1.6 cm\S\2 AI max regan 404.5 cm/sec AI max PG 65.5 mmHg AI dec slope 198.7 cm/sec\S\2 AI P1/2t 596.1 msec LV V1 max PG 4.7 mmHg LV V1 max 107.8 cm/sec PA V2 max 56.1 cm/sec PA max PG 1.3 mmHg PI end-d regan 122.4 cm/sec TR max regan 364.1 cm/sec
[2016-12-15] MEDS: HEPARIN SOD 5000 UNIT/0.5 ML CARP SQ SCH (21:00)
[2016-12-16] VITALS: BP 120/51; PULSE 81; TEMP 36.7; O2SAT 94
[2016-12-16 03:59] VITALS: BP 126/53; PULSE 60; TEMP 36.6; O2SAT 90
[2016-12-16] MEDS: LEVOTHYROXINE 50 MCG TAB PO SCH (05:34)
[2016-12-16 07:09] VITALS: BP_SYST 160; BP_SYST 164; BP_DIAS 65; PULSE 55; TEMP 36.5; O2SAT 99
[2016-12-16] MEDS: ASPIRIN 81 MG ECTAB PO SCH (08:13)
[2016-12-16] MEDS: TIOTROPIUM BROMIDE 5 PUFF/90 MCG INH INH SCH (08:13)
[2016-12-16] MEDS: METOPROLOL TARTRATE 50 MG TAB PO SCH (08:14)
[2016-12-16] MEDS: LISINOPRIL 5 MG TAB PO SCH (08:14)
[2016-12-16] MEDS: HYDROCORTISONE 10 MG TAB PO SCH (08:14)
[2016-12-16] MEDS: DOXYCYCLINE HYCLATE 100 MG CAP PO SCH (08:15)
[2016-12-16] MEDS: HEPARIN SOD 5000 UNIT/0.5 ML CARP SQ SCH (08:16)
[2016-12-16 08:35] LABS: HEMATOCRIT 41.3 % (37-47); MEAN CELL VOLUME 87.7 fL (80-100); MEAN CORPUSCULAR HEMOGLOBIN 27.6 pg (25-34); MEAN CORPUSCULAR HGB CONC 31.5 g/dl (32-36); MEAN PLATELET VOLUME 11.7 fL (7.4-10.4); PLATELET COUNT 209 K/uL (130-400); RED BLOOD COUNT 4.71 M/uL (4.2-5.4); WHITE BLOOD COUNT 12.24 K/uL (4.8-10.8)
[2016-12-16 08:59] LABS: BUN/CREATININE RATIO 30.5 (10-20); CALCIUM 8.8 mg/dl (8.5-10.1); CREATININE 0.79 mg/dl (0.60-1.20); POTASSIUM 3.5 mmol/L (3.5-5.1)
[2016-12-16 09:03] LABS: PREALBUMIN 15.7 mg/dl (20-40)
[2016-12-16] MEDS ORDERED: SPRIN INH (10:45)
[2016-12-16] MEDS ORDERED: ERGO1CAP41 PO (10:46)
--- NOTE | 2016-12-16 11:01 | Discharge Instructions ---
Discharge Instructions Date of Service Dec 16, 2016. Admission Reason for Admission: Chf, Copd, Bilateral Pleural Effusion Discharge Discharge Diagnosis / Problem: Chronic respiratory failure, COPD, weakness, fatigue Discharge Goals Goal(s): Decrease discomfort, Diagnostic testing, Therapeutic intervention Activity Recommendations Activity Limitations: resume your previous activity (as tolerated) . Instructions / Follow-Up Instructions / Follow-Up You were admitted to the hospital with worsening shortness of breath and hypoxia. Dr. Gautam had just increased your oxygen requirement prior to arrival to the hospital, and as you have been feeling better on this requirement , we will continue you on 4L oxygen continuously. You were found to have small bilateral pleural effusions which are likely related to your chronic congestive heart failure. Pulmonology was consulted, and there was no need to do a tap to drain these effusions at this time. Your progressive shortness of breath/ hypoxia are thought to be related to your progressive emphysema. For your weakness and fatigue, several tests were done to help determine the source. These tests came back largely normal except for your vitamin D level, which was low. You have been started on vitamin D replacement therapy, which you will continue as an outpatient. You are now medically stable for discharge and will continue to follow up as an outpatient. Medications: *Please take ergocalciferol (vitamin D) 50,000 interunits by mouth twice a week (Wednesdays and Saturdays) for 8 weeks. After this is completed, your primary care provider can continue maintenance vitamin D dosing. *Please continue on hydrocortisone (steroid) twice daily. Take every morning upon awakening and every afternoon. Take with food. New prescription provided. *Please start lasix (furosemide) 20mg daily. Start this today. Take for FIVE DAYS ONLY then stop. This is a water pill/diuretic. It may help remove the fluid in your lungs. *Please start potassium supplement daily. Start this today. Take for FIVE DAYS ONLY then stop. *It is recommended that you start taking a daily multivitamin. These can be bought over the counter. *Continue your other home medications as prescribed. Follow up: *You will be scheduled to follow up with your primary care provider. There were some changes on your EKG in the hospital that should be followed up on as an outpatient. It is recommended that you have another EKG with your primary care provider when you have your appointment. As discussed, please speak to your primary care provider if you wish to do further cancer work up in the future. Please seek medical attention if you experience fevers, chills, sweats, lightheadedness/dizziness, loss of consciousness, chest pain, acute worsening of shortness of breath, nausea, vomiting, numbness or tingling. Current Hospital Diet Patient's current hospital diet: AHA Diet (Heart Healthy) Discharge Diet Recommended Diet: AHA Diet (Heart Healthy) Procedures Procedures Performed: Echocardiogram Pending Studies Studies pending at discharge: no Medical Emergencies . Who to Call and When: Medical Emergencies: If at any time you feel your situation is an emergency, please call 911 immediately. . Non-Emergent Contact Non-Emergency issues call your: Primary Care Provider Call Non-Emergent contact if: you have a fever, you have any medication questions . Past History Medical & Surgical History: (1) Chronic respiratory failure (2) COPD (chronic obstructive pulmonary disease) (3) Weakness (4) Fatigue . "Provider Documentation" section prepared by Rhonda Hill. . VTE Core Measure Inpt VTE Proph given/why not?: Unfractionated heparin SQ, T.E.D. Stockings, SCD 's
--- NOTE | 2016-12-16 11:17 | Discharge Summary ---
Discharge Summary Date of Service Dec 16, 2016. (Rhonda Hill, YAYA) Discharge Summary Admission Date: Dec 14, 2016 at 17:12 Discharge Date: Dec 16, 2016 Discharge Disposition: Home with services Principal Diagnosis: Chronic respiratory failure, COPD, weakness and fatigue Procedures: Echocardiogram: Interpretation Summary * Name: MELBA ROMERO Study Date: 12/15/2016 06:53 AM BP: 127/52 mmHg * Patient Location: [facility] [place]\S\E204\S\1 HR: 61 * : 1935 (M/d/yyyy) Gender: Female Height: 60 in * Age: 81 yrs Ethnicity: CA Weight: 93 lb * Ordering Physician: Pankaj Hughes * Referring Physician: Jose Juan Gautam * Performed By: Amber Dumont * * Reason For Study: FATIGUE, WEAKNESS * BSA: 1.3 m2 * -- Conclusions -- * Left ventricular systolic function is normal. * No regional wall motion abnormalities noted. * Ejection Fraction = 65-70%. * There is moderate concentric left ventricular hypertrophy. * Diastolic dysfunction, Grade II (pseudonormalization pattern). * There is mild to moderate tricuspid regurgitation. * Right ventricular systolic pressure is elevated at 40-50mmHg. Procedure Details * A complete two-dimensional transthoracic echocardiogram was performed (2D, M- mode, Doppler and color flow Doppler). Left Ventricle * The left ventricle is normal in size. * There is moderate concentric left ventricular hypertrophy. * Ejection Fraction = 65-70%. * Left ventricular systolic function is normal. * No regional wall motion abnormalities noted. Right Ventricle * The right ventricle is normal size. * There is mild right ventricular hypertrophy. * The right ventricular systolic function is reduced as assessed by tricuspid annular plane systolic excursion (TAPSE) (TAPSE <1.6 cm). Atria * The left atrial size is normal. * Right atrial size is normal. * No ASD detected; PFO is not assessed. Mitral Valve * The mitral valve is grossly normal. * Significant mitral regurgitation is absent. Tricuspid Valve * The tricuspid valve is not well visualized, but is grossly normal. * There is no tricuspid stenosis. * There is mild to moderate tricuspid regurgitation. * Right ventricular systolic pressure is elevated at 40-50mmHg. Aortic Valve * The aortic valve is normal in structure and function. * No hemodynamically significant valvular aortic stenosis. * Trace aortic regurgitation. Pulmonic Valve * The pulmonary valve is not well seen, but the Doppler examination is normal without significant regurgitation or stenosis. Great Vessels * The aortic root is normal size. * The pulmonary is not well visualized. Pericardium/Pleural * There is no pericardial effusion. Great Vessels * Normal inferior vena cava size and collapsability with sniff indicates a normal right atrial pressure of 3 mmHg Left Ventricular Diastolic Function * Diastolic dysfunction, Grade II (pseudonormalization pattern). Consultations: Pulmonology--Dr. Wells (Rhonda Hill ., PA-C) Problems/Secondary Diagnoses: 1. b/l pleural effusions - too small to safely perform thoracentesis 2. vitamin D deficiency - severe 3. moderate protein calorie malnutrition with failure to thrive & recent weight loss 4. question of depression 5. pulmonary HTN 6. h/o CAD with stent placement 7. CKD stage 3 8. chronic cor pulmonale 9. pulmonary fibrosis 10. chronic diastolic CHF 11. HTN 12. hypothyroidism 13. h/o bullous pemphigoid (Lei Clayton MD) Medication Reconciliation New Medications: Furosemide (Lasix) 20 Mg Tab 20 MG PO QAM, #30 TAB 0 Refills Potassium Chloride (Micro-K Ext Rel) 10 Meq Capcr 10 MEQ PO DAILY, #30 CAP 0 Refills Ergocalciferol (Vitamin D 07814 Unit) 50,000 Unit Cap 85656 INTERUNIT PO WeSa@1300 for 16 Days, #16 CAP Hydrocortisone (Cortef) 10 Mg Tab 10 MG PO BID, #60 TAB 1 Refill take every morning and every afternoon Continued Medications: Aspirin (Aspirin) 81 Mg Chw 1 TAB PO DAILY for 30 Days, #30 TAB 3 Refills Doxycycline Hyclate (Doxycycline Hyclate) 100 Mg Cap 100 MG PO DAILY for 30 Days Levothyroxine Sodium (Levothyroxine Sodium) 50 Mcg Tab 1 TAB PO DAILY for 30 Days, #30 TAB 5 Refills Lisinopril (Lisinopril) 5 Mg Tab 5 MG PO DAILY, #30 Metoprolol Tartrate (Metoprolol Tartrate) 50 Mg Tab 50 MG PO BID for 30 Days Tiotropium [place] (Spiriva Handihaler) 5 Puff/90 Mcg Aerp 1 PUFF INH DAILY Discharge Exam The patient reports feeling well. She states that her weakness and fatigue have actually felt improved while being here in the hospital. She denies any shortness of breath or significant cough. She has not had any more nausea or vomiting since the other day. She has not had a bowel movement since being admitted, but she denies any abdominal discomfort or feeling constipated. The patient denies fevers, chills, sweats, chest pain, palpitations, claudication, cough, wheezing, shortness of breath, nausea, vomiting, abdominal pain, dysuria , hematuria, urinary retention, paralysis, weakness, numbness and tingling. Review of Systems: Constitutional: + weakness (improving), + fatigue (improving), No fever, No chills, No sweats Eyes: No worsening of vision, No eye pain, No diplopia ENT: No hearing loss, No sore throat, No trouble swallowing Respiratory: No cough, No wheezing, No shortness of breath Cardiovascular: No chest pain, No claudication, No palpitations Abdomen: No pain, No nausea, No vomiting Musculoskeletal: No joint pain, No muscle pain, No calf pain Genitourinary - Female: No dysuria, No urinary retention, No hematuria Neurologic: No paralysis, No weakness, No numbness/tingling Integumentary: No rash, No itch, No color change Physical Exam: General Appearance: no apparent distress, + thin Eyes: normal inspection, PERRL, EOMI ENT: normal ENT inspection, hearing grossly normal, pharynx normal Neck: supple, no JVD, trachea midline Respiratory/Chest: normal breath sounds, no respiratory distress, + decreased breath sounds (throughout) Cardiovascular: no gallop, no murmur, + bradycardia (regular rhythm) Abdomen / GI: normal bowel sounds, non tender, soft Extremities: normal inspection, no calf tenderness, no pedal edema Neurologic/Psychiatric: alert, normal mood/affect, oriented x 3 Skin: normal color, warm/dry, no rash (Rhonda Hill, AYOC) Hospital Course 81 y/o female with a history of COPD, cor pulmonale, pulmonary fibrosis, chronic diastolic CHF, CAD s/p stent placement, HTN, hypothyroidism, and h/o bullous pemphigoid, who presents for a direct admission from Dr. Gautam's office with progressive dyspnea and hypoxia. Chronic respiratory failure in setting of b/l pleural effusions, COPD, cor pulmonale, & pulmonary fibrosis- follows w/ Dr. Gautam--stable. Denies SOB currently - Admit to [facility] for cardiac monitoring. No acute events overnight. Pt remained in sinus rhythm/sinus bradycardia with HR in high 40s-60s - O2 protocol, wean as tolerated--pt had been wearing 3L but was increased to 4L by Dr. Gautam just prior to arrival. Pt states she feels better on the 4L - CXR shows small bilateral pleural effusions with associated bibasilar opacities which favor atelectasis - DuoNeb PRN SOB/wheezing - Continue Spiriva qd - Consult pulmonary, appreciate recommendations: likely progressive emphysema, possible CHF. Check total protein, albumin, and prealbumin for malnutrition. Check echo to assess hypoxemia - Echo shows LVEF of 65-70%, no wall motion abnormalities, grade II diastolic dysfunction Progressive fatigue/weakness ?secondary to adrenal insufficiency, weight loss - Trial of Cortef, 20 mg PO qam and 10 mg PO qpm--will decrease to 10 mg PO BID on discharge - Magnesium, ESR, CRP, B12 and folate WNL - Iron studies grossly unremarkable - Vitamin D low at 7.9 - Start ergocalciferol 50,000 IU PO 2x/week x 8 weeks - TSH WNL - Total protein, albumin and prealbumin all low - PT/OT: home with home health - Recommended Boost BID, but pt states she has tried this and Ensure in the past but they made her nauseous/vomit. Also recommend daily multivitamin - Discussed with pt that there could be some malignancy contributing to progressive weakness/fatigue and weight loss. CT of chest did not show anything concerning for malignancy, and pt states she had recent mammogram that was normal. She does not want to pursue further malignancy workup at this time. CAD s/p stent placement, chronic diastolic CHF, HTN--stable - Continue ASA, lisinopril 5 mg PO qd, metoprolol tartrate 50 mg PO BID - Lasix 20 mg PO qd x 5 days, potassium supplement x 5 days Hypothyroidism -Continue Synthroid 50 mcg PO qd H/o bullous pemphigoid -Continue Doxycycline 100 mg PO qd DVT prophylaxis -Heparin 5000 units SC q12h -TAMIE leigh and SCDs Code Status -Level V, DO NOT RESUSCITATE Total Time Spent: Greater than 30 minutes This includes examination of the patient, discharge planning, medication reconciliation, and communication with other providers. (Rhonda Hill ., YAYA) Attending Discharge Note & Attestation: Pt seen/examined, chart reviewed, discharge care plan d/w CYRUS Hill. I agree w/ the [place] components of her discharge summary. Pleasant 81yo female with h/o chronic hypoxic respiratory failure on home O2, 4 L continuously; pulmonary fibrosis; pulmonary HTN; COPD; chronic diastolic CHF; CAD; hypothyroidism. Presented as a direct admission for failure to thrive, fatigue, dyspnea, and b/l pleural effusions seen on CT chest which had been completed earlier in November at [facility] in [place]. Upon presentation she underwent repeat chest x-ray showing that the effusions were small. Bedside u/s showed that the effusions were too small to safely perform thoracentesis. Echocardiogram was performed showing grade 2 diastolic dysfunction but preserved EF. She had evidence of mild right heart dysfunction (cor pulmonale) and pulmonary HTN. Extensive lab work-up was unremarkable except for low vitamin D level and low albumin. CBC, iron studies, b12, folate , TSH, sed rate, and crp were all normal. Multiple discussions were held with the patient regarding her fatigue, weight loss, failure to thrive, etc. We discussed that certainly her cardiopulmonary disease (namely the severe COPD) could be the main reason she was fatigued and losing weight. However, we also spoke about the possibility of other occult disease processes (ie cancer, etc) that could be giving her the fatigue/etc. She consistently told us she would NOT want to pursue additional studies/work- up. She admitted to depression symptoms intermittently during her stay but when medication was broached she declined such. At discharge the following were recommended - 1. lasix x 5 days for her b/l pleural effusions 2. vitamin D supplementation w/ ergocalciferol 3. hydrocortisone 10mg BID (for COPD, ?adrenal insuff [although cosyntropin stim test was normal], appetite, etc) discharge exam - gen - thin, NAD, cacechtic neck - no JVD mouth - MMM, no lesions heart - RRR, s1, s2 lungs - decreased BS bases o/w no rales or wheeze abd - soft, no mass, no HSM ext - no edema She will follow-up with Dr Gamble within 1 week of discharge and Dr. Helm, her hotel dining room cashier, within 2 weeks. She will need repeat BMP at time of f/u with her PCP to ensure stable creatinine /electrolytes. Lei Clayton MD (Lei Clayton MD) Discharge Instructions Please refer to the electronic Patient Visit Report (Discharge Instructions) for additional information. (Rhonda Hill, YAYA) Follow-Up Pt will be scheduled to f/u with PCP. Recommended repeating EKG at f/u appointment due some inferolateral ST depressions while inpatient. Unknown if chronic/old as no previous EKGs to compare (Rhonda Hill, AYOC) Additional Copies To Miguel Gamble M.D.; Jose Juan Gautam M.D.; William Wells MD
[2016-12-16 11:31] VITALS: BP 149/61; PULSE 56; TEMP 36.3; O2SAT 97
[2016-12-16 12:10] VITALS: BP 160/65; PULSE 55; TEMP 36.5; O2SAT 99
[2016-12-16] MEDS ORDERED: HYD10 PO (12:38)
[2016-12-16] MEDS ORDERED: FURO-85 PO (12:38)
[2016-12-16] MEDS ORDERED: POTA10CA28 PO (12:38)
--- NOTE | 2016-12-16 13:02 | Pulmonology Progress Note ---
Pulmonary Progress Note Date of Service Dec 16, 2016. Attending Dr. Wells Subjective Patient notes a dramatic improvement in overall respiratory status: Objective Patient lying in bed able to set up easily showing no signs of accessory muscle use/increased work of breathing: VS: I/Os: -605cc SaO2: 09-99% FiO2: 4L RR: 20 RESP: Decreased breath sounds mild dullness at the bases: Minimal expiratory wheezing CARD: S1-S2 distant heart sounds regular rate and rhythm ABD: Positive bowel sounds soft nontender Serum studies WBC: 12 K Urine: 24 (increased) Cr: 0.79 (decreased) Pro: 5.9 (L) ALB: 2.5 (L) Pre-ALB: 15.7(L) Outpatient testing Surgery collected a 02/11/17 @ 0740 hrs. Baseline: 16.5 30 minutes: 20.38 6 minutes: 26.9 Medications: Hydrocortisone 10 mg daily Doxycycline 100 mg daily Spiriva one puff daily Hydrocortisone 20 mg daily Assessment & Plan 81-year-old female admitted with acute on chronic respiratory insufficiency: 1. Respiratory Insufficiency: Patient is showing progressive hypoxemia/dyspnea on exertion this is most likely multifactorial with a combination of: Progressive emphysema, malnutrition, deconditioning and diastolic heart failure. This time I think the best way to treat the patient is to continue on her current steroids, I do agree with current antibiotic choice doxycycline and continue on her outpatient regimen Spiriva as well. This steroids can be discontinued/taper down as an outpatient at this time. Also think the patient should monitor her fluid intake and will need proper nutritional evaluation in the future. 2. Adrenal insufficiency: Patient does not meet the classic standard for adrenal insufficient and based off standard high-dose testing of 250 micrograms and an increase of cortisol level to greater than 20 microgram/deciliters the overall probability classic adrenal insufficiency is low. I do agree with continue with current steroids for possible emphysema exacerbation and we can slowly titrate these down as an outpatient. 3. COPD: Patient will need further workup with repeat pulmonary function test as an outpatient. 4. Pleural effusion: Patient does have small most likely loculated bilateral pleural effusion most likely associated with malnutrition and associated diastolic heart failure. There are times when underlying cor pulmonale has been noted to increase the probability bilateral pleural effusions but as her bedside ultrasonography showed collapsing IVC this is most likely not the case. Continue follow-up as an outpatient and proper fluid intake monitoring will be important. 5. Malnutrition: Patient does have progressive malnutrition as a very low pre- albumin of 15.7. At this time the patient does not want any further workup for this particular issue. Data Medications: Current Inpatient Medications Medications (Trade) Dose Ordered Sig/Livan Route Start Time Stop Time Status Last Admin Dose Admin Acetaminophen (Tylenol Tab) 650 mg Q4H PRN PO 12/14/16 18:30 01/13/17 18:29 Al Hydrox/Mg Hydrox/Simethicone (Maalox Max Susp) 15 ml Q4H PRN PO 12/14/16 18:30 01/13/17 18:29 Magnesium Hydroxide (Milk Of Magnesia Susp) 30 ml Q12H PRN PO 12/14/16 18:30 01/13/17 18:29 Ondansetron HCl (Zofran Inj) 4 mg Q6H PRN IV 12/14/16 18:30 01/13/17 18:29 12/15/16 01:48 4 MG Nitroglycerin (Nitrostat Tab) 0.4 mg UD PRN SL 12/14/16 18:30 01/13/17 18:29 Polyethylene (Miralax Powder Packet) 17 gm DAILY PRN PO 12/14/16 18:30 01/13/17 18:29 Aspirin (Ecotrin Tab) 81 mg DAILY PO 12/15/16 09:00 01/14/17 08:59 12/16/16 08:13 81 MG Doxycycline Hyclate (Vibramycin Cap) 100 mg DAILY PO 12/15/16 09:00 01/14/17 08:59 12/16/16 08:15 100 MG Levothyroxine Sodium (Synthroid Tab) 50 mcg DAILYBB PO 12/15/16 06:00 01/14/17 05:59 12/16/16 05:34 50 MCG Lisinopril (Zestril Tab) 5 mg DAILY PO 12/15/16 09:00 01/14/17 08:59 12/16/16 08:14 5 MG Metoprolol Tartrate (Lopressor Tab) 50 mg BID PO 12/14/16 21:00 01/13/17 20:59 12/16/16 08:14 50 MG Tiotropium [place] (Spiriva Handihaler Inhaler) 1 puff QAM INH 12/15/16 09:00 01/14/17 08:59 12/16/16 08:13 1 PUFF Hydrocortisone (Cortef Tab) 10 mg DAILY@1400 PO 12/15/16 14:00 01/14/17 13:59 12/15/16 14:10 10 MG Hydrocortisone (Cortef Tab) 20 mg QAM PO 12/15/16 09:00 01/14/17 08:59 12/16/16 08:14 20 MG Hydralazine HCl (HydrALAZINE INJ) 10 mg Q4H PRN IV. 12/15/16 00:30 01/14/17 00:29 12/15/16 00:37 10 MG Ergocalciferol (Vitamin D Cap) 50,000 interunit WeSa@1300 PO 12/15/16 13:00 01/14/17 12:59 12/15/16 14:10 50,000 INTERUNIT Heparin Sodium (Porcine) (Heparin Sq 5000 Unit/0.5ml) 5,000 unit Q12 SQ 12/15/16 21:00 01/14/17 20:59 12/16/16 08:16 5,000 UNIT Vital Signs: Date Time Temp Pulse Resp B/P (MAP) Pulse Ox O2 Delivery O2 Flow Rate FiO2 12/16/16 12:10 36.5 55 20 99 Nasal Cannula 12/16/16 11:39 Nasal Cannula 4.0 12/16/16 11:31 36.3 56 20 149/61 (90) 97 Nasal Cannula 4.0 12/16/16 08:00 Nasal Cannula 4.0 12/16/16 07:09 36.5 55 20 164/65 (98) 99 Nasal Cannula 4.0 160/65 (96) 12/16/16 03:59 Nasal Cannula 4.0 12/16/16 03:59 36.6 60 20 126/53 (77) 90 Nasal Cannula 4.0 12/16/16 00:00 36.7 81 20 120/51 (74) 94 Nasal Cannula 4.0 12/16/16 00:00 Nasal Cannula 4.0 12/15/16 20:00 Nasal Cannula 4.0 12/15/16 19:26 36.5 60 16 168/77 (107) 91 Nasal Cannula 4.0 12/15/16 16:00 Nasal Cannula 4.0 12/15/16 15:18 36.3 59 16 138/58 (84) 93 Nasal Cannula 4.0 12/15/16 14:16 64 91 Laboratory Results: Last 24 Hours Test 12/15/16 15:08 12/16/16 07:54 Prothrombin Time 10.6 SECONDS Prothromb Time International Ratio 1.0 White Blood Count 12.24 K/uL Red Blood Count 4.71 M/uL Hemoglobin 13.0 g/dL Hematocrit 41.3 % Mean Corpuscular Volume 87.7 fL Mean Corpuscular Hemoglobin 27.6 pg Mean Corpuscular Hemoglobin Concent 31.5 g/dl RDW Standard Deviation 47.2 fL RDW Coefficient of Variation 14.6 % Platelet Count 209 K/uL Mean Platelet Volume 11.7 fL Sodium Level 140 mmol/L Potassium Level 3.5 mmol/L Chloride Level 103 mmol/L Carbon Dioxide Level 33 mmol/L Anion Gap 4.0 mmol/L Blood Urea Nitrogen 24 mg/dl Creatinine 0.79 mg/dl Est Creatinine Clear Calc Drug Dose 38.0 ml/min Estimated GFR () 81.9 Estimated GFR (Non- 70.7 BUN/Creatinine Ratio 30.5 Random Glucose 113 mg/dl Calcium Level 8.8 mg/dl Total Protein 5.9 gm/dl Albumin 2.5 gm/dl Prealbumin 15.7 mg/dl
== END 2016-12-16 13:55 | disposition home health service (06) | DRG 197 ==
LOC: C.2E 17:12
PROVIDERS: ADMIT Family Medicine; ATTEND Internal Medicine
DX: J84.10 Pulmonary fibrosis, unspecified (principal); I50.32 Chronic diastolic (congestive) heart failure; I13.0 Hypertensive heart and chronic kidney disease with heart failure and stage 1 through stage 4 chronic kidney disease, or unspecified chronic kidney disease; N39.0 Urinary tract infection, site not specified; E27.40 Unspecified adrenocortical insufficiency; J90 Pleural effusion, not elsewhere classified; J96.11 Chronic respiratory failure with hypoxia; E44.1 Mild protein-calorie malnutrition; Z68.1 Body mass index [BMI] 19.9 or less, adult; N18.3 Chronic kidney disease, stage 3 (moderate); E03.9 Hypothyroidism, unspecified; I25.10 Atherosclerotic heart disease of native coronary artery without angina pectoris; F32.9 Major depressive disorder, single episode, unspecified; J44.9 Chronic obstructive pulmonary disease, unspecified; R53.1 Weakness; E55.9 Vitamin D deficiency, unspecified; I27.81 Cor pulmonale (chronic); M81.0 Age-related osteoporosis without current pathological fracture; I65.29 Occlusion and stenosis of unspecified carotid artery; Z87.891 Personal history of nicotine dependence; Z95.5 Presence of coronary angioplasty implant and graft; Z87.81 Personal history of (healed) traumatic fracture; Z79.82 Long term (current) use of aspirin; Z79.899 Other long term (current) drug therapy